=== PATIENT | female | born 1985 | race African-American/Black ===

== ENCOUNTER 2016-02-26 14:39 | Inpatient (IN) | payer OTHER ==
[2016-02-26] MEDS ORDERED: CERVIDIL VG ONE (21:53)
[2016-02-26] MEDS ORDERED: LACTATED RINGERS 1,000 ML IV SCH (22:00)
[2016-02-26 22:57] LABS: Basophils % (Auto) 0.4 % (0.0-1.8); Eosinophils % (Auto) 0.3 % (0.0-4.3); Hematocrit 40.2 % (30.3-42.9); Mean Corpuscular HGB Conc 32 % (30-34); Mean Corpuscular Volume 75 fl (79-97); Red Blood Count 5.36 M/mm3 (3.65-5.03); Red Cell Distribution Width 14.6 % (13.2-15.2); White Blood Count 13.4 K/mm3 (4.5-11.0)
[2016-02-26 22:59] LABS: Mean Corpuscular Hemoglobin 24 pg (28-32); Platelet Count 214 K/mm3 (140-440)
[2016-02-27] MEDS ORDERED: BRETHINE IVP PRN (02:14)
[2016-02-27] MEDS ORDERED: BRETHINE SUB-Q PRN (02:14)
[2016-02-27] MEDS ORDERED: NARCAN 0.4 MG/1 ML IV PRN (02:14)
[2016-02-27] MEDS ORDERED: MINERAL OIL PO PRN (02:14)
[2016-02-27] MEDS ORDERED: MINERAL OIL PO ONE (02:14)
[2016-02-27] MEDS ORDERED: ePHEDrine SULFATE IV PRN (02:14)
[2016-02-27] MEDS: STADOL IV PRN ×4 (02:15→16:06)
--- NOTE | 2016-02-27 02:23 | History and Physical Report ---
History of Present Illness Date of examination: 02/27/16 Date of admission: 02/26/16 17:58 Chief complaint: Vaginal bleeding and Decreased Movement History of present illness: Early entry to care, course has been uncomplicated. Past History Past Medical History: no pertinent history Past Surgical History: no surgical history Family/Genetic History: hypertension (mother and father) Social history: no significant social history, single - Obstetrical History Expected Date of Delivery: 03/01/16 Actual Gestation: 39 Week(s) 4 Day(s) : 1 Medications and Allergies Allergies Allergy/AdvReac Type Severity Reaction Status Date / Time No Known Allergies Allergy Verified 02/26/16 15:22 Active Meds: Active Medications Lactated Ringer's (Lactated Ringers) 1,000 mls @ 125 mls/hr IV DIRECT [facility]AH Last Admin: 02/26/16 23:15 Dose: 125 mls/hr Review of Systems All systems: negative - Vital Signs Vital signs: Vital Signs Pulse Pulse Ox 118 H 96 02/26/16 14:59 02/26/16 14:59 Temp Pulse Resp BP Pulse Ox 97.7 F 88 20 112/80 98 02/26/16 16:15 02/26/16 20:00 02/26/16 16:15 02/26/16 15:01 02/26/16 20:00 - Physical Exam Breasts: Positive: normal Cardiovascular: Regular rate Lungs: Positive: Clear to auscultation, Normal air movement Abdomen: Positive: normal appearance, soft, normal bowel sounds Genitourinary (Female): Positive: normal external genitalia, normal perenium Vagina: Positive: normal moisture Uterus: Positive: enlarged Anus/Rectum: Positive: normal perianal skin Extremities: Positive: normal - Obstetrical FHR: category 1 Uterine Contraction Monitor Mode: External Cervical Dilatation: 1 (VTX, Intact) Cervical Effacement Percentage: 40 station: -2 Uterine Contraction Pattern: Irregular Uterine Tone Measurement Phase: Resting Uterine Contraction Intensity: Mild Results Result Diagrams: 02/26/16 22:30 Abnormal lab results 02/26/16 Range/Units 22:30 WBC 13.4 H (4.5-11.0) K/mm3 RBC 5.36 H (3.65-5.03) M/mm3 MCV 75 L (79-97) fl MCH 24 L (28-32) pg [place] # 0.9 H (0.0-0.8) K/mm3 Seg Neutrophils % 74.3 H (40.0-70.0) % Seg Neutrophils # 10.0 H (1.8-7.7) K/mm3 All other labs normal. Assessment and Plan A: IUP at 39 4/7 Weeks Decreased Movement Low HAIM BPP 6/8 GBS Negative P: Admit to L&D per routine orders Cervidil Induction of Labor
[2016-02-27] MEDS ORDERED: PITOCin/NS 20 UNIT/1000ML DRIP 1,000 ML IV SCH (03:00)
[2016-02-27] MEDS ORDERED: PITOCin/NS 30 UNIT/500ML 500 ML IV SCH ×2 (03:00)
[2016-02-27] MEDS: LACTATED RINGERS 1,000 ML IV SCH ×2 (05:55→13:56)
--- NOTE | 2016-02-27 08:10 | Ultrasound Report ---
BIOPHYSICAL PROFILE: INDICATION: well being. COMPARISON: None similar. TECHNIQUE: Transabdominal ultrasound with Doppler interrogation. 2 - breathing movements 0 - movements 2 - posture and tone 2 - Qualitative amniotic fluid volume 6 - TOTAL SCORE OF POSSIBLE 8 Heart Rate (bpm) 128
--- NOTE | 2016-02-27 08:17 | Ultrasound Report ---
OB LIMITED INDICATION: well being. COMPARISON: None similar at this institution. TECHNIQUE: Transabdominal grayscale ultrasound with Doppler interrogation. Gestation: [place] Position: Cephalic Amniotic Fluid: WNL (7-24 cm) HAIM = 8.9 cm Heart Rate: 118 BPM
--- NOTE | 2016-02-27 10:18 | Progress Note ---
Assessment and Plan A. 30 y/o G1 term IUP with decreased FM, low HAIM and 6/10 BPP yesterday Reassuring FHR since admission IOL s/p Cervadil now Good labor progress and adequate ctx pattern after Cervadil dose GBS Neg P Continue obs of labor progress and ctx pattern AROM with moderate amount clear fluid Pitocin agumentation if indicated Anticipate Subjective - Subjective Date of service: 02/27/16 Patient reports: contractions (S/P Stadol which is now wearing off. Pt coping well with ctx. ) Objective - Vital Signs Vital Signs: Vital Signs - 12hr 02/26/16 02/27/16 02/27/16 23:00 00:00 01:00 Respiratory 16 20 18 Rate 02/27/16 02/27/16 02/27/16 02:00 02:15 04:05 Respiratory 16 20 18 Rate 02/27/16 06:30 Respiratory 18 Rate - Exam Breasts: deferred Cardiovascular: Regular rate Abdomen: Present: normal appearance Vulva: both: normal FHR: category 1 Uterine Contraction Monitor Mode: External Cervical Dilatation: 3.5 (AROM with clear fluid. ) Cervical Effacement Percentage: 90 station: -2 Uterine Contraction Pattern: Regular Uterine Contraction Intensity: Moderate Extremities: normal - Labs Labs: Abnormal Labs 02/26/16 22:30 WBC 13.4 H RBC 5.36 H MCV 75 L MCH 24 L [place] # 0.9 H Seg Neutrophils % 74.3 H Seg Neutrophils # 10.0 H Laboratory Results - last 24 hr 02/26/16 02/26/16 22:30 22:30 WBC 13.4 H RBC 5.36 H Hgb 13.0 Hct 40.2 MCV 75 L MCH 24 L MCHC 32 RDW 14.6 Plt Count 214 Lymph % (Auto) 18.4 [place] % (Auto) 6.6 Eos % (Auto) 0.3 Baso % (Auto) 0.4 Lymph # 2.5 [place] # 0.9 H Eos # 0.0 Baso # 0.1 Seg Neutrophils % 74.3 H Seg Neutrophils # 10.0 H Blood Type B POSITIVE Antibody Screen Negative
--- NOTE | 2016-02-27 14:08 | Progress Note ---
Assessment and Plan A. Ongoing IOL with no further cx change Now on pitocin augmentation P Continue pitocin for adequate ctx patterna and cx change IV sedation and/or epidural per pt request Continue to evaluate maternal/ status and consult Dr Nelson as indicated At this time, anticipate Subjective - Subjective Date of service: 02/27/16 Patient reports: contractions (Requesting a second dose of Stadol now: reports ctx have increased in intensity. ) Objective - Vital Signs Vital Signs: Vital Signs - 12hr 02/27/16 02/27/16 02/27/16 02:15 04:05 06:30 Temperature Pulse Rate Respiratory 20 18 18 Rate Blood Pressure 02/27/16 02/27/16 02/27/16 10:14 11:14 11:30 Temperature 98.3 F Pulse Rate 109 H 99 H Respiratory 18 Rate Blood Pressure 128/78 111/71 02/27/16 02/27/16 02/27/16 12:14 12:50 13:15 Temperature 97.9 F Pulse Rate 98 H 99 H Respiratory 18 Rate Blood Pressure 101/61 119/78 02/27/16 02/27/16 13:46 13:47 Temperature Pulse Rate 98 H Respiratory 18 Rate Blood Pressure 116/80 - Exam Breasts: deferred Lungs: Normal air movement Abdomen: Present: normal appearance Uterus: Present: normal, firm FHR: category 2 (Reassuring with previous mild variable decels and accels present, now improved after position change) Uterine Contraction Monitor Mode: External Cervical Dilatation: 3.4 (No change per RN exam about one hour ago) Uterine Contraction Pattern: Irregular Uterine Contraction Intensity: Moderate (Now on pitocin 4 mu/min) - Labs Labs: Abnormal Labs 02/26/16 22:30 WBC 13.4 H RBC 5.36 H MCV 75 L MCH 24 L [place] # 0.9 H Seg Neutrophils % 74.3 H Seg Neutrophils # 10.0 H Laboratory Results - last 24 hr 02/26/16 02/26/16 22:30 22:30 WBC 13.4 H RBC 5.36 H Hgb 13.0 Hct 40.2 MCV 75 L MCH 24 L MCHC 32 RDW 14.6 Plt Count 214 Lymph % (Auto) 18.4 [place] % (Auto) 6.6 Eos % (Auto) 0.3 Baso % (Auto) 0.4 Lymph # 2.5 [place] # 0.9 H Eos # 0.0 Baso # 0.1 Seg Neutrophils % 74.3 H Seg Neutrophils # 10.0 H Blood Type B POSITIVE Antibody Screen Negative
[2016-02-27] MEDS ORDERED: XYLOCAINE 2% INFILTRATI ONE ×2 (17:41→17:50)
--- NOTE | 2016-02-27 18:29 | Procedure Note ---
OB Delivery Note - Delivery Date of Delivery: 02/27/16 (@ 17: 17:40) Surgeon: KELSEY JULIO Estimated blood loss: other (400cc) - Vaginal Delivery induction: cervidil Delivery augmentation: rupture of membranes, pitocin Delivery monitor: external FHT Route of delivery: (Infant obs at perineum and was slow to cry with stimulation and bulb sx, so cord C&C and infant to warmer for eval by pedi. then became vigorous and was returned to pt's arms after lac repair) Delivery cord: nuchal cord (X i: easily reduced after del of head) Delivery laceration: 1st degree (introital/hymenal ring lac with extension to L labia up to periurethral area) Delivery repair: chromic (3.[address] 1) Anesthesia: local (1% Lidocaine) - Infant A at 1 minute: 8 at 5 minutes: 9 Gender: Male (Pt plans to breastfeed)
[2016-02-27] MEDS ORDERED: PHENERGAN PR PRN (18:31)
[2016-02-27] MEDS ORDERED: DULCOLAX PR PRN (18:31)
[2016-02-27] MEDS ORDERED: DERMOPLAST TP PRN (18:31)
[2016-02-27] MEDS ORDERED: ANUCORT-HC PR PRN (18:31)
[2016-02-27] MEDS ORDERED: ZOFRAN IV PRN (18:31)
[2016-02-27] MEDS ORDERED: TUCKS PAD TP PRN (18:31)
[2016-02-27] MEDS ORDERED: TYLENOL PO PRN (18:31)
[2016-02-27] MEDS ORDERED: MILK OF MAGNESIA PO PRN (18:31)
[2016-02-27] MEDS ORDERED: LANSINOH TP PRN (18:31)
[2016-02-27] MEDS ORDERED: SODIUM CHLORIDE FLUSH SYRINGE 10 ML IV NR (19:00)
[2016-02-27] MEDS: MOTRIN PO SCH (23:30)
[2016-02-28] MEDS: MOTRIN PO SCH ×4 (01:55→18:24)
[2016-02-28 08:19] LABS: Hemoglobin 9.8 gm/dl (10.1-14.3)
[2016-02-28] MEDS: PRENATAL VITAMIN PO SCH (10:18)
--- NOTE | 2016-02-28 10:49 | Progress Note ---
Assessment and Plan A: PPD#1 s/p Stable P: Routine PP care Discharge home today PPE at 6 weeks PP Subjective - Subjective Date of service: 02/28/16 Principal diagnosis: Interval history: See H&P and delivery note Patient reports: appetite normal, voiding normally, pain well controlled, ambulating normally [place]: doing well, nursing well Objective - Vital Signs Latest vital signs: Vital Signs Temp Pulse Pulse Resp BP BP Pulse Ox 02/28/16 08:00 98.3 F 92 H 18 123/76 02/28/16 00:00 98.2 F 118 H 20 112/74 02/27/16 19:25 99.4 F 98 H 18 109/73 02/27/16 19:06 105 H 111/65 97 02/27/16 18:46 117 H 127/75 02/27/16 18:16 103 H 139/60 02/27/16 18:03 98.1 F 18 02/27/16 17:46 100 H 114/69 02/27/16 17:25 101 H 147/92 02/27/16 16:46 90 133/80 02/27/16 16:16 93 H 134/80 02/27/16 16:06 18 02/27/16 15:46 116 H 124/80 02/27/16 15:16 106 H 112/69 02/27/16 15:15 99.2 F 20 02/27/16 14:47 93 H 117/75 02/27/16 14:17 91 H 18 112/72 02/27/16 13:47 18 02/27/16 13:46 98 H 116/80 02/27/16 13:15 99 H 119/78 02/27/16 12:50 97.9 F 18 02/27/16 12:14 98 H 101/61 02/27/16 11:30 98.3 F 18 02/27/16 11:14 99 H 111/71 Intake and Output 02/27/16 02/28/16 02/28/16 22:59 06:59 14:59 Intake Total 1150 200 Output Total 400 1300 Balance 750 -1100 Intake: IV 950 Lactated Ringers 1,000 ml 400 @ 125 mls/hr IV DIRECT [facility] Rx#:[id number] PITOCin/NS 20 UNIT/1000ML 250 DRIP 1,000 ML @ 125 mls/ hr IV DIRECT [facility] Rx#: [id number] PITOCin/NS 30 UNIT/500ML 300 500 ML @ 4 mls/hr IV TITR [facility] Rx#:[id number] Oral 200 200 Output: Urine 400 1300 Void 400 1300 Other: Total, Intake Amount 200 200 Total, Output Amount 400 300 # Voids Void 2 Estimated Blood Loss 400 - Exam Breasts: Present: normal Cardiovascular: Present: Regular rate Lungs: Present: Normal air movement Abdomen: Present: normal appearance Vulva: both: normal (scant rubra lochia, no clots) Uterus: Present: normal, firm, fundal height at umbilicus Extremities: Present: normal Deep Tendon Reflex Grade: Normal +2 - Labs Labs: Abnormal lab results 02/28/16 Range/Units 07:56 Hgb 9.8 L D (10.1-14.3) gm/dl
--- NOTE | 2016-02-28 10:51 | Discharge Summary ---
Providers - Providers Date of Admission: 02/26/16 17:58 Date of discharge: 02/28/16 Attending physician: DARIO FELDER MD Primary care physician: DARIO FELDER MD Hospitalization Reason for admission: active labor, IUP at term Delivery: Procedure details: See delivery note Episiotomy: none Laceration: 1st degree (well approximated) Other procedures: none complications: none Discharge diagnosis: IUP at term delivered Condition at discharge: Good Disposition: DISCHARGED TO HOME OR SELFCARE Plan - Provider Discharge Summary Activity: routine, no sex for 6 weeks, no heavy lifting 4 weeks, no strenuous exercise Diet: routine Instructions: routine Additional instructions: [] Smoking cessation referral if applicable(refer to patient education folder for contact #) [] Refer to [facility] Booklet Call your doctor immediately for: * Fever > 100.5 * Heavy vaginal bleeding ( >1 pad per hour) * Severe persistent headache * Shortness of breath * Reddened, hot, painful area to leg or breast * Drainage or odor from incision. * Keep incision clean and dry at all times and follow doctor's instructions regarding bathing/showering - Follow up plan Follow up: LULY YOO CNM [Advanced Practice Nurse] - 6 Weeks
[2016-02-29] MEDS: MOTRIN PO SCH ×3 (06:00→11:58)
[2016-02-29 08:39] VITALS: BP 94/55
[2016-02-29] MEDS: PRENATAL VITAMIN PO SCH (11:58)
== END 2016-02-29 14:40 | disposition home or self-care (01) | DRG 775 ==
LOC: TRG 14:39 → LD 17:58 → OB 02-27 19:27
PROVIDERS: ADMIT Obstetrics & Gynecology; ATTEND Obstetrics & Gynecology
PROC: 10E0XZZ Delivery of Products of Conception, External Approach (ICD-10-PCS; principal; 2016-02-27)
PROC: 0HQ9XZZ Repair Perineum Skin, External Approach (ICD-10-PCS; 2016-02-27)
DX: O36.8130 Decreased fetal movements, third trimester, not applicable or unspecified (principal); O69.81X0 Labor and delivery complicated by cord around neck, without compression, not applicable or unspecified; O70.0 First degree perineal laceration during delivery; Z3A.39 39 weeks gestation of pregnancy; Z37.0 Single live birth; O76 Abnormality in fetal heart rate and rhythm complicating labor and delivery
CPT/HCPCS: 36415; 76815; 76819; 85014; 85018; 85025; 86850; 86900; 86901; 99211; A6250; G0463; J0595; J2590; J7120